=== PATIENT | male | born 1960 | race Caucasian/White ===

== ENCOUNTER 2022-01-30 15:04 | Emergency (ER) | payer BC, SELFPAY ==
--- NOTE | 2022-01-30 15:30 | XR_ITS ---
FINAL REPORT CLINICAL HISTORY: injury, pt states he slipped and hit the lateral aspect of his foot and ankle 2 weeks ago FINDINGS: LEFT FOOT Three views were obtained. There is no acute fracture or dislocation. The joint spaces appear normal. There is mild vascular calcification. IMPRESSION: No acute process. Reviewed, Interpreted and Dictated by Enmanuel Christiansen III, MD Transcribed by Kelly Bishop Authenticated and [facility]
--- NOTE | 2022-01-30 15:30 | XR_ITS ---
FINAL REPORT CLINICAL HISTORY: injury, pt states he slipped and hit the lateral aspect of his foot and ankle 2 weeks ago FINDINGS: LEFT ANKLE Four views were obtained. There is no acute fracture or dislocation. The joint spaces appear normal. There is soft tissue swelling. A small plantar calcaneal spur is identified. IMPRESSION: No acute process. Reviewed, Interpreted and Dictated by Enmanuel Christiansen III, MD Transcribed by Kelly Bishop Authenticated and [facility]
[2022-01-30 15:42] VITALS: BP 146/71; PULSE 86; RESP 16; TEMP 37.3; O2SAT 97; BMI 32.3
--- NOTE | 2022-01-30 15:46 | HMH.EDUTC ---
[facility] [place] Disposition Clinical Impression: Left ankle injury Qualifiers: Encounter type: initial encounter Qualified Code(s): S99.912A - Unspecified injury of left ankle, initial encounter Sprain of left foot Qualifiers: Encounter type: initial encounter Qualified Code(s): S93.602A - Unspecified sprain of left foot, initial encounter Disposition: Home, Self-Care Condition on Discharge: Good Instructions: Ankle Sprain, DI for Ankle Sprain Additional Instructions: Rest the extremity, apply ice for 15 minutes as tolerated three or four times per day, Wear the ashly wrap for compression, Elevate the extremity as tolerated while you are resting. Take ibuprofen for pain. I sent in a prescription to your pharmacy. Follow up with Dr. Yoon (podiatry). Sometimes there can be fractures that don't show up well on the first set of x-rays. So, you should follow up if you continue to have symptoms. I put in a referral but you need to call her office and schedule an appointment. Follow up with your regular doctor. GO TO THE ER FOR ANY WORSENING SYMPTOMS Prescriptions: Ibuprofen [Ibuprofen 600mg Tablet] 600 mg PO Q6HP PRN #30 tab PRN Reason: Mild Pain Transmission Status: [facility] Referrals: Provider,Referral, [Primary Care Provider] - Tatiana Yoon DPM [Staff Physician] - Time of Disposition: 16:45 Medical Decision Making - Medical Records Medical records reviewed: No: I reviewed the patient's medical records. - Dom Inquiry Pt receiving controlled substance: No Vital Signs: 01/30/22 15:42 01/30/22 16:54 Temperature 99.2 F 99.2 F Temperature Source Oral Pulse Rate 86 Pulse Rate [Left] 86 Respiratory Rate 16 16 Blood Pressure 146/71 H Blood Pressure [Right Arm] 146/71 H Blood Pressure Mean [Right Arm] 96 02 Sat by Pulse Oximetry 97 - Radiology Data #1 Image(s): Foot/Toes Image Reviewed: Yes I reviewed the patient's radiology image, Yes I have reviewed radiologist's interpretation Preliminary Findings: Normal/NAD, No Fracture Seen FINAL REPORT CLINICAL HISTORY: injury, pt states he slipped and hit the lateral aspect of his foot and ankle 2 weeks ago FINDINGS: LEFT FOOT Three views were obtained. There is no acute fracture or dislocation. The joint spaces appear normal. There is mild vascular calcification. IMPRESSION: No acute process. Reviewed, Interpreted and Dictated by Enmanuel Christiansen III, MD Transcribed by Kelly Bishop Authenticated and [facility] Image(s): Ankle Image Reviewed: Yes I reviewed the patient's radiology image, Yes I have reviewed radiologist's interpretation Preliminary Findings: Normal/NAD, No Fracture Seen FINAL REPORT CLINICAL HISTORY: injury, pt states he slipped and hit the lateral aspect of his foot and ankle 2 weeks ago FINDINGS: LEFT ANKLE Four views were obtained. There is no acute fracture or dislocation. The joint spaces appear normal. There is soft tissue swelling. A small plantar calcaneal spur is identified. IMPRESSION: No acute process. Reviewed, Interpreted and Dictated by Enmanuel Christiansen III, MD Transcribed by Kelly Bishop Authenticated and [facility] HPI - General Stated complaint: AO 022 left foot pain, home accident Time Seen by Provider: 01/30/22 15:46 Description of Symptoms (Recalled from Triage Doc. by RN): patient comes in for left foot and ankle pain. patient was building a house 2 weeks ago. tripped over something and has been having pain and swelling since the incident. HEENT Symptoms (Recalled from RN notes): No Resp Symptoms (Recalled from RN notes): No Skin Symptoms (Recalled from RN notes): No MS Symptoms (Recalled from RN notes): Yes Functional Status (Recalled from RN notes
[2022-01-30 16:54] VITALS: BP 146/71; PULSE 86; RESP 16; TEMP 37.3
== END 2022-01-30 16:55 | disposition home or self-care (01) ==
PROVIDERS: Emergency Provider Nurse Practitioner Family
DX: S99.912A Unspecified injury of left ankle, initial encounter (principal); S93.602A Unspecified sprain of left foot, initial encounter; W18.40XA Slipping, tripping and stumbling without falling, unspecified, initial encounter; Y92.69 Other specified industrial and construction area as the place of occurrence of the external cause; Y99.0 Civilian activity done for income or pay
CPT/HCPCS: 73610; 73630; 99212; G0463

== ENCOUNTER 2022-05-10 12:46 | Emergency (ER) | payer BC, SELFPAY ==
[2022-05-10 13:23] VITALS: BP 154/95; PULSE 69; RESP 17; TEMP 36.8; O2SAT 97; BMI 32.3
--- NOTE | 2022-05-10 13:40 | EXP.UTC ---
Discharge Plan Disposition Patient Disposition: Home, Self-Care Condition: Good Prescriptions Prescriptions: New azithromycin [Zithromax Z-Aris] 250 mg tablet See Rx Instructions .ROUTE .COMPLEX 5 Days Qty: 6 0RF Rx Instructions: For 250 mg dose pack: take 500 mg today (day 1), then 250 mg for 4 days (days 2-5) No Action ibuprofen 600 MG tablet 600 mg PO Q6HP PRN (Reason: Mild Pain) Qty: 30 0RF Referrals Follow up/Referrals: Jc Ashley DO [Staff Physician] - 05/16/22 11:00 am Provider,Referral, [Primary Care Provider] - See instructions Activity Restrictions/Add. Instructions Additional Instructions/Restrictions: *weight bearing as tolerated *RICE, Rest the extremity, Ice 15-20 minutes 3-4 times daily, Compress- wear the ashly wrap as discussed as much as possible to help reduce swelling and pain, Elevate the extremity when at rest *Walking boot is for support and help control swelling, use it except in the shower. Be sure that is not to tight but not to loose either *Elevate when resting? *Ibuprofen 600-800mg every 6-8 hours as needed for pain an inflammation. If need something more can take Tylenol in between doses of Ibuprofen to help Make sure to keep appointment with ORthopedics for further treatment and evaluation Clinical Impressions Clinical Impression: Sprain of left foot, Left ankle injury URI (upper respiratory infection) Qualifiers: URI type: unspecified URI Qualified Code(s): J06.9 - Acute upper respiratory infection, unspecified Instructions Patient Instructions: How To Perform RICE (Rest, Ice, Compress, Elevate), How to Use a Walking Boot Discharge ED Provider: Milagros Bennett [facility] HPI General Stated complaint: ao fall 03/08, left leg pain, poss sinus infection Mode of Arrival: Ambulatory Source of Information: Patient Limitations: No Limitations Time Seen by Provider: 05/10/22 13:40 Description of Symptoms (Recalled from Triage Doc. by RN): pt comes in with c/o continuing pain on outside of left foot. pt was seen here 01/30 and has exrays and was given referral to dr mera. pt state he is having pain and swelling going on for 3 months. pt did not followup with dr mera or pcp. HEENT Symptoms (Recalled from RN notes): No Resp Symptoms (Recalled from RN notes): No Skin Symptoms (Recalled from RN notes): No MS Symptoms (Recalled from RN notes): Yes Functional Status (Recalled from RN notes): n/a History of Present Illness Provider Complaint: Patient states that he hurt his ankle about 3 mths ago States that he had an xray done and they did not find anything on the xray and he was told to follow up but he didnt States that he never followed up but has continued to have swelling on and off in the ankle ever since that has been worse over the last couple of weeks Denies new injury States that he came in today hoping to get a CT or MRI to see what is going on States that he has also been having sinus congestion and pressure and wanted that looked at too Related Data Previous Rx's Medication Instructions Recorded ibuprofen 600 mg tablet 600 mg PO Q6HP PRN Mild Pain #30 01/30/22 tabs azithromycin 250 mg tablet See Rx Instructions PO .COMPLEX 5 05/10/22 (Zithromax Z-Aris) days #6 tabs Allergies Allergy/AdvReac Type Severity Reaction Status Date / Time acetaminophen [From Tylenol] Allergy Verified 05/10/22 13:26 Penicillins Allergy Verified 05/10/22 13:26 Worker's Comp Is this a Worker's Comp case?: No PFSH PFSH Social History Smoking Status: Unknown if ever smoked alcohol intake: never current occupational status: employed Travel in the last 8 weeks: None ROS Obtained: Yes All systems reviewed & no additional complaints except as documented and Yes Systems reviewed as appropriate & no additional complaints except as documented Constitutional Constitutional: Reports system reviewed and no additional complaints, except as documented and Reports as pe
[2022-05-10 14:17] VITALS: BP 154/95; PULSE 69; RESP 17; TEMP 36.8
== END 2022-05-10 14:20 | disposition home or self-care (01) ==
PROVIDERS: Emergency Provider Nurse Practitioner
DX: S93.602A Unspecified sprain of left foot, initial encounter (principal); S99.912A Unspecified injury of left ankle, initial encounter
CPT/HCPCS: 99212; G0463